=== PATIENT | female | born 1965 | race African-American/Black ===

== ENCOUNTER 2023-09-20 08:32 | Emergency (ER) | payer OTHER ==
[~2023-09-20] VITALS: Ht 175.3 cm; Wt 66.0 kg
[2023-09-20 08:37] VITALS: O2SAT 100
[2023-09-20 09:55] LABS: BASOPHILS % 1.3 % (0.0-2.0); HEMOGLOBIN. 13.5 g/dL (12.0-16.0); LYMPHOCYTES % 29.4 % (20.0-50.0); MEAN CORPUSCULAR HEMOGLOBIN 30.1 pg (28.0-32.0); MEAN CORPUSCULAR HGB CONC 32.9 g/dL (31.0-37.0); MEAN CORPUSCULAR VOLUME 91.3 fL (81.0-99.0); MEAN PLATELET VOLUME 7.9 fl (7.4-10.4); MONOCYTES % 6.6 % (2.0-8.0); NEUTROPHILS % 60.7 % (40.0-76.0); PLATELET 328 x1000/uL (130-400); RED BLOOD CELL COUNT 4.49 mill/uL (4.2-5.4); RED CELL DISTRIBUTION WIDTH 13.9 % (11.6-14.6)
[2023-09-20 09:59] LABS: PROTHROMBIN TIME 11.1 sec (9.6-11.0)
[2023-09-20 10:02] LABS: ALANINE AMINOTRANSFERASE 13 IU/L (10-49); ALBUMIN 4.3 g/dL (3.2-4.8); ASPARTATE AMINOTRANSFERASE 29 IU/L (<34); BILIRUBIN TOTAL 0.8 mg/dL (0.1-1.0); CALCIUM 9.7 mg/dL (8.7-10.4); CARBON DIOXIDE 29 mEq/L (21-32); CHLORIDE 107 mEq/L (98-107); CREATININE 1.1 mg/dL (0.6-1.0); GLUCOSE 154 mg/dL (70-105); POTASSIUM 3.7 mEq/L (3.5-5.1); PROTEIN TOTAL 6.7 g/dL (6.0-8.3); SODIUM 140 mEq/L (136-145); UREA NITROGEN BLOOD 15 mg/dL (9-23)
[2023-09-20] MEDS: SODIUM CHLORIDE 0.9% 1,000 ML IV ONE (10:14)
[2023-09-20] MEDS: MAGNESIUM/ALUMINUM HYDROXIDE/SIMETHICONE 30ML UDC PO STA (10:14)
[2023-09-20] MEDS: ONDANSETRON HCL 4MG/2ML INJ IV STA (10:14)
[2023-09-20] MEDS: HYDRALAZINE 20MG/ML VIAL IV ONE (10:21)
[2023-09-20] MEDS: NICARDIPINE 50 MG in SODIUM CHLORIDE 0.9% 230 ML IV SCH (10:30)
[2023-09-20] MEDS: LEVETIRACETAM 1000MG PREMIX 100 ML IV ONE (10:38)
[2023-09-20] MEDS: LEVETIRACETAM 500MG PREMIX 100 ML IV ONE (10:45)
[2023-09-20] MEDS: NICARDIPINE 50 MG in SODIUM CHLORIDE 0.9% 230 ML IV STA (10:47)
[2023-09-20] MEDS: NIMODIPINE 30MG CAPSULE PO STA (11:05)
[2023-09-20 11:30] VITALS: BP 138/76; PULSE 83; RESP 22; TEMP 97.4
[2023-09-20] MEDS: MORPHINE SULFATE 4 MG/ML INJ (FOR IV/IM USE) IV ONE ×2 (11:33→11:34)
[2023-09-20] MEDS ORDERED: IOHEXOL-350 100 ML BOTTLE ONE (13:51)
== END 2023-09-20 11:30 | disposition short-term general hospital (02) ==
LOC: ER 09:03
DX: I60.9 Nontraumatic subarachnoid hemorrhage, unspecified (principal); I10 Essential (primary) hypertension; E78.00 Pure hypercholesterolemia, unspecified
CPT/HCPCS: 80053; 83880; 85025; 85610; 36415; 71045; 70496; 70498; 70450; 93005; 96368; 96365; 96375; 99291; Q9967; J1953; J0360; J3490; J2405; J2270; J7050; J7030; Z7610 ×3